=== PATIENT | male | born 1945 | race Caucasian/White ===

== ENCOUNTER 2022-11-23 00:40 | Day surgery (SDC) | payer MEDICARE, OTHER, SELFPAY ==
--- NOTE | 2022-11-17 13:02 | PC.NURSE ---
Report to the Outpatient Waiting Room, entrance under the green pavilion located off [facility], at time ___1100____ on date __11/23/22 . Planned Procedure Time: _1200 . Time changes happen often and if your time is changed the preop area will call you the afternoon before. - You and your visitor will be asked to self-screen and do not enter if you have any COVID symptoms. - A mask is optional within the hospital at this time. LIGHT BREAKFAST MORNING OF SURGERY Take the following medications with a SIP of water the morning of surgery: ALL ROUTINE MORNING MEDICATIONS DO NOT STOP ANY OF YOUR OTHER PRESCRIPTION MEDICATIONS PRIOR TO SURGERY ?EXCEPT THE FOLLOWING Medications to discontinue per physician NONE Please no make-up, nail lao, hairspray, perfume, deodorant, or body powder the day of surgery. No jewelry (including any body piercings) or valuables the day of surgery, leave them at home. Please take a shower or bath the night before, or the morning of, surgery with an antibacterial soap. Wear comfortable, loose fitting clothing. Children are encouraged to wear pajamas. - Jewelry must be removed prior to entering the operating room. Rings and piercings that are not removed may be cut off. - The hospital will not accept responsibility for valuables. - Please leave all valuables, including medications, at home the day of surgery. If you are going home after surgery, MAY DRIVE YOURSELF HOME LOCAL ANESTHESI Follow any additional instructions given to you from your surgeon. If you or anyone in your household have experienced Covid symptoms in the past week, please notify your surgeon or the nurse liaison at the phone number below for possible testing. Telephone instructions given to __PT and asked if any additional questions and then verbalized understanding. Patient advised to call surgeon office or pre surgery nurse liaison [phone] if any additional questions.
[2022-11-17 13:06] VITALS: BMI 38.3
[2022-11-23] VITALS (10 sets, daily range): BP systolic 183–229; BP diastolic 84–117; PULSE 58–70; RESP 14–18; TEMP 36; O2SAT 91–100
--- NOTE | 2022-11-23 07:07 | WPDHPUPDATE1 ---
History and Physical Update Update Date/Time: 11/23/22 07:07 History and Physical has been reviewed, including an updated exam of the patient. There are NO changes in the patient's condition. Risks, benefits, and alternatives have been discussed and questions answered. Patient agrees to proceed with procedure.
[2022-11-23] MEDS: LIDO 1%/EPINEPHRINE 1:100,000 20 ML VIAL 5 ML INFILTRATE (12:39)
--- NOTE | 2022-11-23 12:41 | SUR.OPER ---
Frozen section sent with SASCHA Carpio and received in pathology by
--- NOTE | 2022-11-23 13:46 | W.PM.PROC2 ---
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 He was then taken to the operating room. He was placed supine on the operating table. A time-out was held and confirmed. The extremity was prepped and draped in usual fashion. The site was carefully remarked for an excision and locally infiltrated with 1% lidocaine with epinephrine. The site was excised with a 15 blade into the subcutaneous tissue. The specimen was sent to pathology for frozen section with a marking at the most proximal aspect. The pathologist reveals no residual skin cancer; there are areas of actinic keratoses. The wound margins were undermined about 7 mm and closed with intradermal 4-0 Vicryl suture at multiple sites and the skin closed with a running 5 0 nylon. The patient was discharged home with instructions in wound care and follow-up and no prescriptions. Estimated Blood Loss 5 Tourniquet Time 0 Drains No Packing No Pathology Yes Complications No immediate complications Condition Stable Disposition Same day
== END 2022-11-23 14:41 | disposition home or self-care (01) ==
PROVIDERS: Visit Provider Plastic Surgery
PROC: (CPT 11602; principal; 2022-11-23 13:00)
DX: C44.622 Squamous cell carcinoma of skin of right upper limb, including shoulder (principal); L57.0 Actinic keratosis; L81.4 Other melanin hyperpigmentation; L57.8 Other skin changes due to chronic exposure to nonionizing radiation; Z79.82 Long term (current) use of aspirin
CPT/HCPCS: 11602; 12032; 88305; 88331